=== PATIENT | female | born 1970 | race American Indian/Alaskan Native ===

== ENCOUNTER 2020-05-27 09:59 | Outpatient (CLI) | payer OTHER ==
--- NOTE | 2020-05-27 11:44 | XRay Report ---
CHEST 2 VIEWS INDICATION / CLINICAL INFORMATION: PAIN. COMPARISON: 08/27/2017 FINDINGS: SUPPORT DEVICES: None. HEART / MEDIASTINUM: No significant abnormality. LUNGS / PLEURA: No significant pulmonary or pleural abnormality. No pneumothorax. ADDITIONAL FINDINGS: No significant additional findings. IMPRESSION: No significant abnormality or interval change from 08/27/2017 Signer Name: Go Lynne MD FACR Signed: 05/27/2020 11:39 AM Workstation Name: [id number]
== END 2020-05-27 10:00 | disposition home or self-care (01) ==
LOC: XRAY 09:59
PROVIDERS: ATTEND Internal Medicine
DX: J45.909 Unspecified asthma, uncomplicated (principal); G56.00 Carpal tunnel syndrome, unspecified upper limb; M79.7 Fibromyalgia; M62.838 Other muscle spasm
CPT/HCPCS: 71046